=== PATIENT | female | born 1990 | race Hispanic/Latino ===

== ENCOUNTER 2017-08-09 16:31 | Inpatient (IN) | payer OTHER, SELFPAY ==
[~2017-08-09 16:31] MED LIST: Ketorolac Tromethamine 30 MG/ML VIAL ONE; Lidocaine 1% PF 5 ML VIAL ONE; PROPOFOL 200 MG/20 ML VIAL ONE; Succinylcholine Chloride 20 MG/ML 10 ml SYRINGE FS ONE
[2017-08-09] MEDS ORDERED: Adacel (T-DAP) 0.5 ML VIAL ONE (16:38)
[2017-08-09] MEDS ORDERED: Ibuprofen 200 MG TAB ONE (16:40)
--- NOTE | 2017-08-09 17:22 | RAD ---
THREE VIEWS OF THE LEFT HAND 08/09/17 COMPARISON: None. HISTORY: Open wound to the left hand, dog bite. FINDINGS: Punctate foci of soft tissue gas seen near the base of the fourth and fifth proximal phalanges, consi stent with provided history of dog bite. No associated fracture or radiopaque foreign body seen. IMPRESSION: Soft tissue injury overlying the region of the base of the fourth and fifth proximal phalanges. No as sociated fracture or dislocation. Findings are consistent with laceration associated with bite. POS: ELEANOR
[2017-08-09] MEDS ORDERED: Ketorolac Tromethamine 30 MG/ML VIAL ONE (19:27)
[2017-08-09] MEDS ORDERED: Ampicillin/Sulbactam 3 GM in Sodium Chloride 0.9% 100 ML IVPB SCH (22:30)
[2017-08-09 22:44] VITALS: BMI 26.2
[2017-08-09] MEDS: Sodium Chloride 0.9% 1,000 ML IV SCH (23:31)
[2017-08-10] MEDS ORDERED: Midazolam HCl 2 mg/2 ml Vial ONE (00:17)
[2017-08-10] MEDS ORDERED: HYDROmorphone 0.5 MG/0.5 ML SYRINGE ONE (00:40)
[2017-08-10] MEDS ORDERED: Promethazine HCl 25 MG/ML VIAL SLOW IVP PRN (01:21)
[2017-08-10] MEDS ORDERED: Ondansetron HCl/PF 4 MG/2 ML Vial IVP PRN (01:21)
[2017-08-10] MEDS ORDERED: Promethazine HCl 25 MG/ML VIAL IM PRN ×3 (01:21→20:57)
[2017-08-10] MEDS ORDERED: Fentanyl 100 MCG/2 ML VIAL ONE ×3 (01:23→01:37)
[2017-08-10] MEDS ORDERED: RENALLY ADJUST ANTIBIOTICS FS PRN (01:45)
[2017-08-10] MEDS: Morphine 4 MG/ML VIAL SLOW IVP PRN ×4 (02:14→08:25)
[2017-08-10] MEDS: Sodium Chloride 0.9% 1,000 ML IV SCH (06:22)
--- NOTE | 2017-08-10 07:55 | OP ---
DATE OF PROCEDURE: 08/10/2017 PREOPERATIVE DIAGNOSES: Deep dog bite wound dorsal ulnar hand, in the fourth webspace possible invol vement of the small finger, ring finger, metacarpophalangeal joint finding no true metacarpophalangea l injury, but marked loss of muscle mass fourth dorsal interossei. PROCEDURES PERFORMED: 1. Debridement of wound down to and including the muscle, but no evidence of joint involvement. 2. Irrigation of wound. 3. Wound dressed open. ESTIMATED BLOOD LOSS: 10 mL. TOURNIQUET TIME: 10 minutes. ANESTHESIA: PRIVACY MANAGER, ____, Dhiraj. INDICATIONS: The patient had a dog bite injury approximately hours prior to this procedure. Becaus e of the marked air and possible joint involvement she came to the operating room within 8 hours of p rocedure. SURGEON: Dr. Morris Posey DESCRIPTION OF PROCEDURE: After successful general LMA technique the limb was prepped and draped. T he patient had the time out done appropriately and we proved she was on no beta blockers. The patient then had the tourniquet inflated to 250 mmHg pressure after exsanguination of the limb, e xtended her incision 1 cm proximal and 8 mm distally. Carried to skin, subcutaneous tissue, medially debrided fat which had the clotted globules consistent with dog bite. Followed the trails until it led to the space in between the fourth and fifth metacarpals consistent with interossei and then we h ad to debride these because there was marked muscle purpuric changes as it had been cut. We then elevated the subcutaneous tissue, visualized joint capsule 360 degrees for the metacarpophala ngeal joints of the index finger and small finger, with the small finger having a small interruption proximal to this, but no evidence of fracture or bony involvement or joint involvement. We then fini shed wound debridement using the following techniques; A) tenotomy scissors [place] blade 11 blade kni fe and an Adson; B) excisional technique; C) the depth was as listed above down to and including the soft tissue. The patient then had the wound flap fully debrided, the edges debrided [address] portion wound created by the accident with the animal, and then finished irrigation. We packed wi th normal saline soaked gauze, 4 x 4s, Kerlix, and Aravind wrap.
[2017-08-10] MEDS ORDERED: Acetaminophen/Codeine 30-300mg Tablet PO PRN (07:58)
[2017-08-10] MEDS: Acetaminophen/Codeine 30-300mg Tablet PO PRN ×4 (08:15→21:29)
[2017-08-10] MEDS: Ampicillin/Sulbactam 1.5 GM in Sodium Chloride 0.9% 100 ML IVPB SCH ×2 (09:47→21:29)
[2017-08-10] MEDS ORDERED: Meperidine HCl/PF 25 MG/ML VIAL IM PRN (20:56)
[2017-08-11] MEDS: Acetaminophen/Codeine 30-300mg Tablet PO PRN (06:07)
[2017-08-11 08:17] VITALS: BP 119/83; TEMP 98.3
[2017-08-11] MEDS: Ampicillin/Sulbactam 1.5 GM in Sodium Chloride 0.9% 100 ML IVPB SCH (09:21)
== END 2017-08-11 10:20 | disposition home or self-care (01) | DRG 581 ==
LOC: ERS 16:31 → SURG A 20:20 → OBSVTOIN 20:20
PROVIDERS: ADMIT Orthopaedic Surgery Hand Surgery; ATTEND Orthopaedic Surgery Hand Surgery
PROC: 0JBK0ZZ Excision of Left Hand Subcutaneous Tissue and Fascia, Open Approach (ICD-10-PCS; principal; 2017-08-09)
DX: S61.452A Open bite of left hand, initial encounter (principal); W54.0XXA Bitten by dog, initial encounter
CPT/HCPCS: 90471; 90715; 96374; J0295; J1170; J1885; J2001; J2175; J2250; J2270; J2550; J2704; J3010; J3490; J7050

== ENCOUNTER 2017-08-14 10:10 | Day surgery (SDC) | payer SELFPAY ==
[2017-08-13 16:40] VITALS: BMI 26.2
[2017-08-14] MEDS ORDERED: Clindamycin/D5W 600 mg/50 ml Premix Bag ONE (12:02)
[2017-08-14] MEDS ORDERED: Fentanyl 100 MCG/2 ML VIAL ONE ×2 (12:02→13:15)
[2017-08-14 12:11] LABS: #Eosinphils 0.2 thou/uL (0.0-0.7); #Lymphocytes 2.8 thou/uL (1.20-3.40); #Monocytes 0.9 thou/uL (0.11-0.59); #Neutrophils 6.3 thou/uL (1.40-6.50); %Basophils 0.5 % (0.0-1.0); %Eosinophils 2.2 % (0.0-10.0); %Lymphocytes 27.8 % (21.0-51.0); %Monocytes 8.5 % (0.0-10.0); %Neutrophils 61.1 % (42.0-75.0); Hemoglobin 13.8 g/dL (12.0-16.0); Mean Corpuscular Hemoglobin 31.5 pg (27.0-31.0); Mean Platelet Volume 7.1 fL (7.4-10.4); Platelet Count 299 thou/uL (130-400); RBC Distribution Width 11.6 % (11.5-14.5); Red Blood Cell (RBC) Count 4.37 mill/uL (4.20-5.40); White Blood Cell (WBC) Count 10.2 thou/uL (4.8-10.8)
[2017-08-14 12:26] LABS: BHCG - Serum Negative (NEGATIVE); Pregs Control Background? CLEAR/WHITE (CLR/WHITE); Pregs Control Bar Appear? YES (CONTROL BAR)
[2017-08-14] MEDS ORDERED: Bupivacaine PF 0.5% 30 ML VIAL ONE (13:13)
[2017-08-14] MEDS ORDERED: Bacitracin Zinc Ointment 30 gm TUBE ONE (13:13)
[2017-08-14] MEDS ORDERED: Sodium Chloride 0.9% 10 ML ONE (13:13)
[2017-08-14] MEDS ORDERED: Ondansetron HCl/PF 4 MG/2 ML Vial ONE ×2 (13:15→14:05)
[2017-08-14] MEDS ORDERED: Metoclopramide HCl 10 MG/2 ML VIAL ONE ×2 (13:15→14:05)
[2017-08-14] MEDS ORDERED: PROPOFOL 200 MG/20 ML VIAL ONE (14:05)
[2017-08-14] MEDS ORDERED: Ketorolac Tromethamine 30 MG/ML VIAL ONE ×2 (14:05→14:20)
[2017-08-14] MEDS ORDERED: Dexamethasone 20 MG/5 ML VIAL ONE (14:05)
[2017-08-14] MEDS ORDERED: Lidocaine 1% PF 5 ML VIAL ONE (14:05)
--- NOTE | 2017-08-15 14:01 | OP ---
DATE OF PROCEDURE: 08/14/2017 PREOPERATIVE DIAGNOSIS: Left wound fourth web and hand open wound from the previous laceration. PROCEDURES PERFORMED: 1. Wound debridement. 2. Wound closure 7 cm, multiple layers, and injection of 20 mL of 0.5% Marcaine. ESTIMATED BLOOD LOSS: 5 mL TOURNIQUET TIME: None. FINDINGS: No contamination or fracture. INDICATIONS: The patient wound management and closure. DESCRIPTION OF PROCEDURE: After successful general LMA technique, the limb was prepped and draped. Anesthesia was done by [facility] and time out was accomplished appropriatel y. We then prepped and draped the upper extremity, exsanguinated limb, and inflated tourniquet to 25 0 mmHg pressure. We then began debridement and systematic inspection using following techniques: A. Excisional technique. B. Use of a [place] blade, 11 blade knife, tenotomy scissors, curet, and Adson pickup. C. No gross contamination was seen. Indeed the level was down to but not including the bone. Then, we irrigated the area with 3 liters normal saline to ensure the Pulsavac antibiotics inside and showed no infection and then finally, we did not have a tourniquet time at the end of the procedure and we then inspected, obtained hemostasis and closed the wound in multiple layers with a 4-0 [place] l deep subcu and 4-0 nylon mattress pattern. The patient left the operating room without evide nce of anesthetic complications.
== END 2017-08-14 15:30 | disposition home or self-care (01) ==
LOC: SDC 10:10
PROVIDERS: ATTEND Orthopaedic Surgery Hand Surgery
PROC: 0JBK0ZZ Excision of Left Hand Subcutaneous Tissue and Fascia, Open Approach (ICD-10-PCS; principal; 2017-08-14)
PROC: 0JQK0ZZ Repair Left Hand Subcutaneous Tissue and Fascia, Open Approach (ICD-10-PCS; principal; 2017-08-14)
DX: S61.452A Open bite of left hand, initial encounter (principal); Z79.2 Long term (current) use of antibiotics; Z98.890 Other specified postprocedural states; W54.0XXA Bitten by dog, initial encounter
CPT/HCPCS: 84703; 85025; 96372; A4216; J0131; J1100; J1885; J2001; J2405; J2704; J2765; J3010; J3490; S0020

== ENCOUNTER 2021-02-10 18:52 | Emergency (ER) | payer SELFPAY ==
[2021-02-10] MEDS ORDERED: Bacitracin 1 PK ONE (19:38)
== END 2021-02-10 19:45 | disposition home or self-care (01) ==
LOC: ERS 18:52
DX: T23.261A Burn of second degree of back of right hand, initial encounter (principal); T23.171A Burn of first degree of right wrist, initial encounter; X10.0XXA Contact with hot drinks, initial encounter; Z87.891 Personal history of nicotine dependence
CPT/HCPCS: 99283

== ENCOUNTER 2022-06-01 03:49 | Emergency (ER) | payer SELFPAY ==
[2022-06-01] MEDS ORDERED: Ibuprofen 800 MG TAB ONE (04:38)
[2022-06-01] MEDS ORDERED: Dexamethasone 10 MG/ML VIAL ONE (04:38)
[2022-06-01 04:55] LABS: #Basophils 0.1 thou/uL (0.0-0.2); #Eosinphils 0.1 thou/uL (0.0-0.7); #Monocytes 0.7 thou/uL (0.11-0.59); %Basophils 0.6 % (0.0-1.0); %Eosinophils 0.7 % (0.0-10.0); %Lymphocytes 22.3 % (21.0-51.0); %Monocytes 8.3 % (0.0-10.0); %Neutrophils 68.1 % (42.0-75.0); Hemoglobin 15.3 g/dL (12.0-16.0); Mean Corpuscular HGB CONC 33.7 g/dL (32.0-36.0); Mean Corpuscular Hemoglobin 30.2 pg (27.0-31.0); Mean Corpuscular Volume 89.8 fl (78.0-98.0); Mean Platelet Volume 8.5 fL (7.4-10.4); Platelet Count 255 10x3/uL (130-400); RBC Distribution Width 12.1 % (11.5-14.5); Red Blood Cell (RBC) Count 5.05 mill/uL (4.20-5.40); White Blood Cell (WBC) Count 8.9 10x3/uL (4.8-10.8)
[2022-06-01] MEDS ORDERED: Ipratropium/Albuterol 3 ML NEB ONE (04:55)
[2022-06-01 05:15] LABS: ALT (SGPT) 34 U/L (8-55); AST (SGOT) 20 U/L (5-34); Albumin 4.3 g/dL (3.5-5.0); Alkaline Phosphatase 84 U/L (40-110); Anion Gap 12 mmol/L (10-20); BUN (Urea Nitrogen) 8 mg/dL (7.0-18.7); Bilirubin, Total 0.3 mg/dL (0.2-1.2); Calc. Creatinine Clearance 0 mL/min (70-130); Calcium 9.2 mg/dL (7.8-10.44); Carbon Dioxide 23 mmol/L (22-29); Chloride 104 mmol/L (98-107); Estimated GFR 100; Globulin 3.8 g/dL (2.4-3.5); Glucose 114 mg/dL (70-105); Potassium 3.4 mmol/L (3.5-5.1); Protein, Total 8.1 g/dL (6.0-8.3); Sodium 136 mmol/L (136-145)
[2022-06-01 05:37] LABS: SARS-CoV-2 NAA Rapid Test Not Detected (NotDetected)
== END 2022-06-01 06:05 | disposition home or self-care (01) ==
LOC: ERS 03:49
DX: B34.9 Viral infection, unspecified (principal); Z20.822 Contact with and (suspected) exposure to COVID-19
CPT/HCPCS: 36415; 71045; 80053; 83605; 85025; 87040; 93005; 94640; 94760; J1100; J7620